=== PATIENT | female | born 1955 | race Caucasian/White ===

== ENCOUNTER 2020-04-30 08:24 | Observation (INO) ==
[~2020-04-30 08:24] MED LIST: BUPIVACAINE HCL/PF 10 ML VIAL ONE; MIDAZOLAM HCL/PF 5 MG/ML VIAL ONE; MORPHINE SULFATE 15 MG TABLET.SA PO PRN; PROPOFOL VIAL IV ONE; ROPIVACAINE HCL/PF 100 MG, EPINEPHrine 0.2 MG, KETOROLAC TROMETHAMINE 30 MG in NORMAL S... IJ PRN; TRANEXAMIC ACID 1,000 MG in NORMAL SALINE 100 ML IV PRN; ceFAZolin SODIUM 1 GM VIAL IV PRN
[2020-04-30] MEDS ORDERED: ceFAZolin SODIUM 1 GM VIAL ONE (08:29)
--- NOTE | 2020-04-30 09:17 | ANES ---
Anesthesia Pre Procedure Eval Vitals/Labs: Last Vital Signs Temp 37.1 C 04/30/20 08:47 Pulse 81 04/30/20 08:47 Resp 14 04/30/20 08:47 BP 139/76 04/30/20 08:47 Pulse Ox 98 04/30/20 08:47 HOME MEDICATIONS epinephrine 0.3 mg/0.3 mL injection, auto-injector 0.3 mg IM ONCE PRN ea 08/02/18 [Last Taken Unknown] ascorbate calcium (vitamin C) 500 mg tablet 500 mg PO DAILY 04/15/20 [Last Taken Unknown] cholecalciferol (vitamin D3) 50 mcg (2,000 unit) capsule 50 mcg PO DAILY 04/15/20 [Last Taken Unknown] bjmxzovi-mfe-ictdd acid 0.4 mg-lycopene 300 mcg-lutein 250 mcg tablet 1 tab PO DAILY 04/15/20 [Last Taken Unknown] vit R-utsncfn-gvmrnghas-rutin-ucmf091 500 mg-50 mg-25 mg-40 mg tablet 1 tab PO DAILY tab 04/15/20 [Last Taken Unknown] vitamin B comp and C no.3 15 mg-10 mg-50 mg-5 mg-300 mg capsule 1 cap PO DAILY 04/15/20 [Last Taken Unknown] Allergies/Adverse Reactions: Allergies Allergy/AdvReac Type Severity Reaction Status Date / Time venom-honey bee AdvReac Unknown eye Verified 04/30/20 08:53 swelling - Planned Procedure Planned Procedure: RT Arthroplasty Total Hip Medication List Reviewed:: Yes Allergies Verified: Yes Medical History (Last Reviewed 04/30/20 @ 09:13 by Jovany Campbell CRNA) Osteoarthritis of right hip (Chronic) Due to avascular necrosis Varicose veins of both lower extremities (Acute) Osteoarthritis of knees, bilateral (Acute) Surgical History (Last Reviewed 04/30/20 @ 09:13 by Jovany Campbell CRNA) History of throat surgery Onset Date: ~2008 lump taken off of esophagus History of tubal ligation Onset Date: Unknown Family History (Last Reviewed 04/30/20 @ 09:13 by Jovany Campbell CRNA) Brother Cancer esophageal Aunt Cancer breast Mother Medical history unknown Father Medical history unknown - Family Anesthesia History Family History:: no untoward family reactions to anesthesia, no familial bleeding tendencies, no family history of clotting disorders, no family history of premature - Airway/Neck/Teeth Within Normal Limits:: Yes - some ashley Mallampatti Score: 2 Thyromental (T-M) distance: > 6 cm Mandibulo Hyoid distance: > 3 cm - Respiratory Respiratory Physical: rhonchi, wheezing Smoking Status: Current every day smoker - 1ppd Discussed smoking cessation including day of surgery: Yes - last ciggarrette 0700 Sleep Apnea currently treated: No Sleep Apnea by current assessment: No - Cardiovascular Tolerate Activity: Fair Heart Sounds: S1 & S2, Regular - Gastrointestinal NPO since: 2400 - Anesthesia Assessment and Plan ASA Class: PS, III Anesthesia Type Plan: Spinal
[2020-04-30] MEDS: RINGER'S SOLUTION,LACTATED 1,000 ML IV PRN ×4 (09:25→21:30)
[2020-04-30] MEDS ORDERED: MORPHINE SULFATE 2 MG/ML DISP.SYRIN IV PRN (11:32)
[2020-04-30] MEDS ORDERED: MAGNESIUM HYDROXIDE 30 ML UDC PO PRN (11:32)
[2020-04-30] MEDS ORDERED: ONDANSETRON HCL/PF 2 MG/ML VIAL IV PRN (11:32)
[2020-04-30] MEDS ORDERED: ZOLPIDEM TARTRATE 5 MG TABLET PO PRN (11:32)
[2020-04-30] MEDS ORDERED: MAG HYDROX/ALUMINUM HYD/SIMETH 30 ML UDC PO PRN (11:32)
[2020-04-30] MEDS ORDERED: ACETAMINOPHEN 500 MG TABLET PO PRN (11:32)
[2020-04-30] MEDS ORDERED: diphenhydrAMINE HCL 50 MG/ML VIAL IV PRN (11:32)
[2020-04-30] MEDS ORDERED: DEXTROSE 5%-LACTATED RINGERS 1,000 ML IV PRN (11:32)
[2020-04-30] MEDS ORDERED: EPINEPHrine 0.3 MG DISP.SYRIN IM PRN (11:34)
--- NOTE | 2020-04-30 11:39 | OR ---
Operative Report - Dictated Report Narrative: Date: 04/30/2020 Preoperative diagnosis: Right hip degenerative joint disease. Postoperative diagnosis: Right hip degenerative joint disease. Procedure: Right total hip arthroplasty. Surgeon: Edward Jaimes M.D. Web Merchant: Jeovanny Pena PA-C (provided an essential set of skilled, educated and assisted with transfer, positioning, prepping, draping, manipulation, traction, irrigation, suturing, and placement of dressings all of which cannot be performed by the available surgical crew) Anesthesia: Spinal and local periarticular joint injection. Complications: None Specimens: Bone. Estimated blood loss: 100 milliliters. Retained implants: Depuy [place] size 5 femoral stem standard offset. Size 54 millimeter outside diameter 3-hole Edna Gription acetabular cup. 54 millimeter outside by 36 millimeter inside diameter highly cross-linked acetabular liner. 36 millimeter diameter + 8 millimeter cobalt chromium femoral head. Cancellous 6.5mm screw 30 millimeter length Indications: Mrs. Martin is a 65-year-old female who had longstanding right hip pain and arthrosis. This patient was followed in my clinic for period of time with significant complaints of right hip pain consistent with arthritic changes. She failed conservative measures including but not limited to activity modification, passage of time, medications, and other conservative measures. Patient wished to proceed with surgical treatment. The risks, benefits, and alternatives were discussed in clinic. The risks of , blood clots, bleeding, infection, nerve/tendon blood vessel/ injury, malposition of components, dislocation and/or instability of joint, intraoperative fracture, postoperative limited range of motion, persistent pain, failure of components, and need for additional procedures. Patient wished to proceed. Consent was obtained after answering all questions. Procedure: After marking the correct extremity on the floor, the patient was taken to the operating room. A timeout was performed. IV antibiotics consisting of Ancef were administered prior to the procedure. A spinal anesthetic was induced by anesthesia. A Barahona catheter was inserted. The patient was then transitioned to a lateral position on a well-padded pegboard. An axillary roll was placed. The head was in neutral position. The non- operative down leg was well-padded with SCD and OLIVER hose in place. The arms were supported and padded to protect from any undue pressure on the bony prominences and nerves. A well-padded anterior and posterior pelvic and chest posts were secured in order to maintain a stable position of the pelvis. This was placed so that the pelvis was perpendicular to the floor. The body was in line with the pelvis. Once it was felt that we had protected all the bony prominences and the patient was well secured with a safety belt as well, the leg was pre-scrubbed with alcohol, prepped and draped in a standard sterile fashion. A standard anterior lateral hip incision was marked out over the greater trochanter. Ioban drapes were then placed. The skin incision was then made. Sharp dissection with a scalpel utilizing cautery for hemostasis was carried out down to the gluteus and iliotibial band fascia. This was split in line with the skin incision. The greater trochanter bursa was excised. The anterior and posterior margins of the abductor tendon were identified. The anterior 1/2-1/3 of the tendon was tagged and reflected off the greater trochanter leaving a sleeve of tendon for repair at the completion of the case. This exposed the underlying hip joint capsule. An inverted T-type capsulotomy was made extending this up to the brim of the acetabulum. Using Homans to assist with elevation of the soft tissues off the anterior, superior, and inferior aspects of the femoral neck, the hip was then placed in a figure 4 position and the femoral head was dislocated. With the leg in an externally rotated and adducted position, the cutting flag was utilized in order to tacos for a standard femoral neck cut approximately a fingerbreadth above the level of the lesser trochanter. This was done with reference to pre-operative films and overall alignment. This was done while protecting the surrounding soft tissues with Homans. The femoral head was then removed and sized for guidance on preparation of the acetabulum. It was noted that there was loss of articular cartilage on both the femoral head and weightbearing portions of the acetabulum. We then returned the leg to the table and turned our attention to the acetabulum. While protecting the surrounding soft tissues, the labrum and remaining tissue in the fovea were excised using a scalpel and cautery. A series of reamers up to size 54 millimeter were utilized to prepare the acetabulum. The final reamer had good purchase and exposed the bleeding subchondral bone. The acetabulum was then thoroughly irrigated ensuring that all bony and cartilaginous materials were removed, and the final acetabular shell was impacted into place. This was placed in approximately 45 degrees of abduction and 20 degrees of anteversion utilizing the outrigger and body axis for alignment. This had a good press fit. 1 6.5mm cancellous screw was placed in the superior posterior quadrant of the acetabulum. The shell was then thoroughly irrigated and the final polyethylene was impacted into place ensuring that it seated completely. There were large posterior and inferior osteophytes which were excised. This was then protected with a sponge while we returned our attention to the femur. With the leg in a figure 4 position, utilizing Homans for soft tissue protection, a box cutting osteotome, followed by Charnley awl, followed by serial reamers and broaches were utilized in order to prepare the femur. It was found that a size 5 broach gave good axial and rotational stability. The calcar reamer was utilized in order to clean up the cut edges. The proximal femur was visualized to ensure that there were no signs of fracture. A series of heads and necks were trialed. It was found that a standard offset neck and a + 8 femoral head gave good overall stability. There was minimal longitudinal instability. With the leg in the position of sleep, the femoral head was well covered. Hip range of motion was able to reach full extension and external rotation to greater than 75 degrees prior to impingement along the posterior acetabulum. The hip was able to be flexed to greater than 90 degrees with internal rotation greater than 60 degrees prior to anterior impingement. The limb lengths were near equal based on comparison to the contralateral side and the prior placed limb length stitch. At this point it was felt these were the appropriately sized femoral components as well as neck and femoral head. The trial implants were removed. The femur was thoroughly irrigated. The final implants were impacted into place, and the hip was reduced. After ensuring that there was no damage to the proximal femur, the standard periarticular joint injection of ropivacaine, Toradol, and epinephrine were injected into the joint capsule and surrounding soft tissues. Anesthesia then administered intravenous tranexamic acid. The capsule was repaired with a single interrupted #1 Vicryl. The abductor tendon was repaired to the greater trochanter utilizing #5 Ethibond through drill holes. This was oversewn with #1 Vicryl. The fascia was closed with interrupted #1 Vicryl and #1 Stratafix barbed suture. The wounds were thoroughly irrigated as we closed in layers. The deep and subcutaneous fat layers were closed with 0 and 3-0 Vicryl respectively. The subcutaneous tissue was closed with a running 3-0 Vicryl and the skin mickie. All sponge, needle, blade, and instrument counts were correct prior to closing the wounds. Sterile dressings consisting of xeroform, 4 x 4's, and tape were applied. The patient was awoken and transferred to her hospital bed and then to the postanesthesia care unit in stable condition. Postoperative condition: The plan is to admit to the medical/surgical inpatient floor postoperatively. There will be a projected 1 to 3 day hospital stay. Postoperatively 24 hours of IV antibiotics, pain control, physical therapy, occupational therapy, and medical comanagement will be utilized. Patient will be weightbearing as tolerated with anterior hip precautions. Postoperative films will be obtained in the recovery room.
--- NOTE | 2020-04-30 11:40 | ANES ---
Post Anesthesia Discharge - Transfer of Care Transfer of Care handoff given to nurse: Yes - Discharge from PACU Discharge from PACU when meets criteria: Yes - Alert and comfortable.
--- NOTE | 2020-04-30 11:58 | ANES ---
Post Anesthesia Assessment - Vital Signs Vitals: Last Vital Signs Temp 36.3 C 04/30/20 11:50 Pulse 64 04/30/20 11:50 Resp 18 04/30/20 11:50 BP 121/56 04/30/20 11:50 Pulse Ox 100 04/30/20 11:50 Airway Patency: Normal - Mental Status Level Of Consciousness: Awake, Alert, Appropriate - Pain Level Pain Score: 0 - N/V Assessment Nausea/Vomiting Presence: None Dehydration:: No
[2020-04-30] MEDS: ceFAZolin SODIUM 1 GM in DEXTROSE 5 % IN WATER 100 ML IV SCH ×4 (13:31→19:52)
[2020-04-30] MEDS: KETOROLAC TROMETHAMINE 15 MG/ML VIAL IV SCH ×2 (13:33→19:52)
[2020-04-30] MEDS: oxyCODONE HCL/ACETAMINOPHEN 1 TAB TABLET PO PRN ×3 (14:30→21:33)
[2020-04-30] MEDS ORDERED: SENNOSIDES/DOCUSATE SODIUM 1 TAB TABLET PO SCH (21:00)
[2020-05-01] MEDS: ceFAZolin SODIUM 1 GM in DEXTROSE 5 % IN WATER 100 ML IV SCH ×2 (01:48)
[2020-05-01] MEDS: KETOROLAC TROMETHAMINE 15 MG/ML VIAL IV SCH ×2 (01:49→07:43)
[2020-05-01 06:25] LABS: BUN/Creatinine Ratio 12.1 (9.0-21.6); Calcium * 8.2 mg/dL (7.9-10.9); Carbon Dioxide 31.8 mmol/L (24-32.6); Estimated Creat Clear 80.7; Potassium 4.8 mmol/L (3.4-4.6)
[2020-05-01 06:54] LABS: Hematocrit 34.5 % (37.0-47.0); Hemoglobin 10.9 gm/dL (12.5-16.0); Mean Cell Volume 97.2 fl (78-100); Mean Corpuscular Hemoglobin 30.7 pg (27-31); Mean Corpuscular Hgb Conc 31.6 g/dl (32-36); Platelet Count 263 K/mm3 (150-450); Red Blood Count 3.55 M/mm3 (4.2-5.4); White Blood Count 8.2 K/mm3 (4.0-10.5)
[2020-05-01] MEDS: oxyCODONE HCL/ACETAMINOPHEN 1 TAB TABLET PO PRN ×4 (07:42→14:23)
[2020-05-01] MEDS ORDERED: CHOLECALCIFEROL 1,000 UNIT CAPSULE PO SCH (09:00)
[2020-05-01] MEDS ORDERED: MULTIVIT-MIN/FA/LYCOPEN/LUTEIN 1 TAB TABLET PO SCH (09:00)
[2020-05-01] MEDS ORDERED: VITAMIN B COMP W-C 1 TAB TABLET PO SCH (09:00)
[2020-05-01] MEDS ORDERED: ASCORBIC ACID 500 MG TABLET PO SCH (09:00)
[2020-05-01] MEDS ORDERED: ENOXAPARIN SODIUM 40 MG/0.4 ML SYRG SC SCH (10:32)
--- NOTE | 2020-05-01 12:05 | DS ---
(1) Status post total hip replacement, right Problem: Acute Date of Discharge:: 05/01/20 Hospital Course: 65-year-old female postop day 1 status post right total hip arthroplasty. Patient was admitted postoperatively to monitor for any acute complications, pain control, PT evaluation, monitoring. Patient overall has done well, she passed all PT goals this morning. Her pain is well controlled with p.o. pain medication. There are no other significant signs of acute complications. Discussed with patient plan to discharge home with outpatient physical therapy. Patient will be given DVT prophylaxis. Exam right lower extremity today reveals bandages clean/dry/intact, sensation tact light touch, distal capillary refill brisk, 5/5 ankle plantar flexion/dorsiflexion. Patient will continue with the following recommendations: -PT/OT progress as tolerated, anterior precautions -Weightbearing as tolerated with assistive device -Pain medication, p.o. Percocet -P.o. diet as tolerated -DVT prophylaxis: OLIVER hose bilateral knee-high, Lovenox for 7 days followed by 325 mg aspirin daily for 6 weeks -Dressings can be changed as needed or every 2 to 3 days with dry gauze and tape, maintain wound clean and dry -Follow-up with orthopedic outpatient clinic at 2 weeks postop -Disposition: Discharge home with outpatient PT, call orthopedics with any acute questions or concerns, otherwise follow-up with the outpatient clinic Procedures Performed: see notes below List Procedures: Right total hip arthroplasty Results and Findings: Lab Pending Results 05/01/20 06:05: WBC 8.2, RBC 3.55 L, Hgb 10.9 L, Hct 34.5 L, MCV 97.2, MCH 30.7, MCHC 31.6 L, RDW 13.0, Plt Count 263, MPV 10.0 05/01/20 06:05: Sodium 139, Plasma Sodium 139, Potassium 4.8 H, Chloride 104, Carbon Dioxide 31.8, Anion Gap 8.0, BUN 7, Creatinine 0.58, Est GFR (Non-Af Amer) 111 D, BUN/Creatinine Ratio 12.1, Random Glucose 96, Calcium 8.2 Discharge Location: Home Disposition: Home self-care Condition: Stable Discharge Activity: Activity as tolerated, Weight bearing - Anterior precautions, assistive device Discharge Diet: General/regular food Referrals: Vanda Lang MD [Primary Care Provider] - Problem Oriented Discharge Instructions to Patient/Family: Total Hip Replacement, Anterior, Care After, Dyjv-wu-Vgoi, Total Hip Replacement, Zefb-dl-Rujj Print Language (Spanish or Lithuanian Available): Spanish Additional Patient Instructions (free text): Physical Therapy at [facility] on MondayMay 04 at 10:00am. Please fax demographics and PT order to [phone] Follow up with ortho on 05/13 and 08:45am. Prescriptions (Any new or edited meds): Enoxaparin Sodium [Lovenox] 40 mg SC Q24H #6 disp.syrin Transmission Status: Pending to [place], [place] oxyCODONE HCL/ACETAMINOPHEN [Percocet 5 MG/325 MG] 1 tab PO Q2H PRN #52 tab PRN Reason: Moderate Pain (Pain Scale 4-6) Transmission Status: Received by [place], [place] Sennosides/Docusate Sodium [Senokot-S] 2 tab PO HS #60 tab Transmission Status: Pending to [place], [place] Complete Home Medications List: Complete Home Medication List: epinephrine 0.3 mg/0.3 mL injection, auto-injector 0.3 mg IM ONCE PRN ea 08/02/18 ascorbate calcium (vitamin C) 500 mg tablet 500 mg PO DAILY 04/15/20 cholecalciferol (vitamin D3) 50 mcg (2,000 unit) capsule 50 mcg PO DAILY 04/15/20 xmvvbrvj-inw-nqvjx acid 0.4 mg-lycopene 300 mcg-lutein 250 mcg tablet 1 tab PO DAILY 04/15/20 vit Z-dtjdzgm-csqebrcpz-rutin-[id number] 500 mg-50 mg-25 mg-40 mg tablet 1 tab PO DAILY tab 04/15/20 vitamin B comp and C no.3 15 mg-10 mg-50 mg-5 mg-300 mg capsule 1 cap PO DAILY 04/15/20 Enoxaparin Sodium [Lovenox] 40 mg SC Q24H #6 disp.syrin 05/01/20 Sennosides/Docusate Sodium [Senokot-S] 2 tab PO HS #60 tab 05/01/20 oxyCODONE HCL/ACETAMINOPHEN [Percocet 5 MG/325 MG] 1 tab PO Q2H PRN #52 tab 05/01/20 Amb Orders for Discharge: PT Evaluation and Treatment* Location: None Selected Forms: Patient Portal Registration
[2020-05-01] MEDS ORDERED: oxyCODONE HCL/ACETAMINOPHEN 1 TAB TABLET PO ONE (13:30)
[2020-05-01 18:48] VITALS: BP 99/48
== END 2020-05-01 14:50 | disposition home or self-care (01) ==
LOC: SUR 08:24 → MS 08:24
PROVIDERS: ADMIT Orthopaedic Surgery; ATTEND Orthopaedic Surgery